=== PATIENT | female | born 1980 ===

== ENCOUNTER 2017-05-02 05:36 | Emergency (ER) | payer OTHER ==
[2017-05-02 05:37] VITALS: BMI 23.7
[2017-05-02 05:45] VITALS: O2SAT 100
[2017-05-02] MEDS ORDERED: diaZEpam 10 mg/2 ml Inj IM ONE (05:56)
--- NOTE | 2017-05-02 06:05 | ED PDOC ---
HPI: Back <Chuyita Dooley F - Last Filed: 05/02/17 07:32> Chief Complaint (Provider): Back Pain History Per: Patient History/Exam Limitations: no limitations Onset/Duration Of Symptoms: Hrs (x 1.5) Current Symptoms Are (Timing): Still Present Quality Of Discomfort: Sharp, Stabbing Pain Scale Rating Of: 10 Previous Symptoms: Back Pain Exacerbating Factor(s): Movement Additional Complaint(s): Denise is a 37 y/o female with a history of chronic back pain, sciatica, and lumbar disc disease, presenting with acute left-sided low back pain radiating down the left buttock and leg. She reports pain is similar to previous exacerbations she's had in the past. Patient did not take any medications prior to arrival. Reports intense pain with any sort of movement, and difficulty walking. Pain is rated as 10/10, sharp, and stabbing. PMD: Unknown <London Campa - Last Filed: 05/04/17 01:24> Time Seen by Provider: 05/02/17 05:45 Chief Complaint (Nursing): Back Pain Past Medical History Vital Signs: Last Vital Signs Temp 98.0 F 05/02/17 05:42 Pulse 68 05/02/17 05:42 Resp 05/02/17 05:42 BP 104/72 05/02/17 05:42 Pulse Ox 100 05/02/17 06:50 <Chuyita Dooley F - Last Filed: 05/02/17 07:32> Reviewed: Historical Data, Nursing Documentation, Vital Signs Vital Signs: Last Vital Signs Temp 98.0 F 05/02/17 05:42 Pulse 68 05/02/17 05:42 Resp 05/02/17 05:42 BP 104/72 05/02/17 05:42 Pulse Ox 100 05/02/17 05:42 - Medical History PMH: Chronic Pain (back) Denies: Depression Other PMH: sciatica, lumbar disc disease - Surgical History Surgical History: No Surg Hx - Family History Family History: States: No Known Family Hx - Social History Current smoker - smoking cessation education provided: No Alcohol: None Drugs: Denies <London Campa - Last Filed: 05/04/17 01:24> - Home Medications Home Medications: Ambulatory Orders Medication Instructions Recorded Cyclobenzaprine [Flexeril] 5 mg PO BID #10 tab 02/18/17 Naproxen 0 tab PO BID PRN 02/18/17 Cyclobenzaprine [Cyclobenzaprine 10 mg PO TID PRN #15 tab 05/02/17 HCl] Naproxen [Naprosyn] 500 mg PO BID PRN #15 tablet 05/02/17 - Allergies Allergies/Adverse Reactions: Allergies Allergy/AdvReac Type Severity Reaction Status Date / Time kiwi Allergy Severe ANAPHYLAXIS Uncoded 09/11/15 12:45 Review of Systems ROS Statement: Except As Marked, All Systems Reviewed And Found Negative Musculoskeletal: Positive for: Back Pain (radiating down left buttock and leg) <London Campa - Last Filed: 05/04/17 01:24> Physical Exam - Reviewed Nursing Documentation Reviewed: Yes Vital Signs Reviewed: Yes - Physical Exam Appears: Positive for: No Acute Distress, Uncomfortable Head Exam: Positive for: ATRAUMATIC, NORMAL INSPECTION, NORMOCEPHALIC Skin: Positive for: Normal Color, Warm, Dry Eye Exam: Positive for: EOMI, Normal appearance, PERRL Neck: Positive for: Normal, Painless ROM Cardiovascular/Chest: Positive for: Regular Rate, Rhythm. Negative for: Murmur Respiratory: Positive for: Normal Breath Sounds. Negative for: Accessory Muscle Use, Respiratory Distress Gastrointestinal/Abdominal: Positive for: Normal Exam, Soft. Negative for: Tenderness Back: Positive for: Normal Inspection. Negative for: L CVA Tenderness, R CVA Tenderness Extremity: Positive for: Other (Leg raise tenderness on left at 15 degrees. Leg raise tenderness on right at 45 degrees) Neurologic/Psych: Positive for: Alert, Oriented (x 3) <London Campa - Last Filed: 05/04/17 01:24> - ECG O2 Sat by Pulse Oximetry: 100 (RA) Pulse Ox Interpretation: Normal <London Campa - Last Filed: 05/04/17 01:24> Medical Decision Making Medical Decision Making: Time: 05:56 Initial Impression: 37-year-old female with low back pain in setting of lumbar disc disease Initial Plan: --Trial of Toradol and Valium --Pending urinalysis and reevaluation Time: 07:00 --Patient is signed out by me to Dr. Chuyita Dooley, pending reevaluation. Scribe Attestation: Documented by Kayla Jenkins, acting as a scribe for London Campa MD Provider Scribe Attestation: All medical record entries made by the Scribe were at my direction and personally dictated by me. I have reviewed the chart and agree that the record accurately reflects my personal performance of the history, physical exam, medical decision making, and the department course for this patient. I have also personally directed, reviewed, and agree with the discharge instructions and disposition. <London Campa - Last Filed: 05/04/17 01:24> Disposition <Chuyita Dooley - Last Filed: 05/02/17 07:32> - Patient ED Disposition Is Patient to be Admitted: Transfer of Care - Disposition Disposition: Transfer of Care Disposition Time: 07:00 Patient Signed Over To: Chuyita Dooley Handoff Comments: Pending reevaluation <London Campa - Last Filed: 05/04/17 01:24> - Clinical Impression Clinical Impression: Chronic back pain - Disposition Referrals: [facility] [Outside] Condition: STABLE Prescriptions: Cyclobenzaprine [Cyclobenzaprine HCl] 10 mg PO TID PRN #15 tab PRN Reason: Pain Naproxen [Naprosyn] 500 mg PO BID PRN #15 tablet PRN Reason: Pain, Moderate (4-7) Instructions: Chronic Back Pain (ED) Forms: [employer] ([place]ese), [facility] ED School/Work Excuse
[2017-05-02 06:25] LABS: RBC URINE 11 /hpf (0-3); URINE BACTERIA RARE (<OCC); URINE BILIRUBIN NEGATIVE (NEGATIVE); URINE BLOOD NEGATIVE (NEGATIVE); URINE COLOR YELLOW (YELLOW); URINE GLUCOSE (UA) NEG (Normal); URINE KETONE NEGATIVE (NEGATIVE); URINE LEUKOCYTE ESTERASE NEG Leu/uL (Negative); URINE PROTEIN 100 mg/dL (NEGATIVE); URINE UROBILINOGEN 0.2-1.0 mg/dL (0.2-1.0); WBC URINE 1 /hpf (0-5)
--- NOTE | 2017-05-02 07:38 | ED PDOC ---
- ECG O2 Sat by Pulse Oximetry: 100 (RA) Medical Decision Making Medical Decision Making: Patient signed over to me by London Campa MD pending remaining ED workup. Scribe Attestation: Documented by Leighton Moe, acting as a scribe for Chuyita Dooley MD. Provider Scribe Attestation: All medical record entries made by the Scribe were at my direction and personally dictated by me. I have reviewed the chart and agree that the record accurately reflects my personal performance of the history, physical exam, medical decision making, and the department course for this patient. I have also personally directed, reviewed, and agree with the discharge instructions and disposition. Disposition - Disposition Forms: [employer] ([place])
[2017-05-02] MEDS ORDERED: Lidocaine 5% Patch TD STA (09:59)
[2017-05-02] MEDS ORDERED: Lidocaine 5% Patch TD ONE (10:05)
[2017-05-02 10:11] VITALS: BP 110/76; PULSE 70; RESP 16; TEMP 97.9
== END 2017-05-02 10:11 | disposition home or self-care (01) ==
LOC: H.ER 05:36
DX: M54.9 Dorsalgia, unspecified (principal)
CPT/HCPCS: 81003; 81025; 96372; 99282; J1885; J3360

== ENCOUNTER 2018-11-13 10:24 | Emergency (ER) | payer SELFPAY ==
[2018-11-13 10:30] VITALS: BMI 26.0
[2018-11-13 10:31] VITALS: RESP 18
--- NOTE | 2018-11-13 11:01 | ED PDOC ---
HPI: Chest Pain Time Seen by Provider: 11/13/18 10:39 Chief Complaint (Nursing): Chest Pain Chief Complaint (Provider): Ches pain History Per: Patient History/Exam Limitations: no limitations Onset/Duration Of Symptoms: Days (x2 weeks), Intermittent Episodes Current Symptoms Are (Timing): Still Present Quality: Tightness Associated Symptoms: denies: Nausea, Dyspnea, Diaphoresis Additional Complaint(s): Denise Porras is a 38 year old female, with no significant past medical history, who presents to the emergency department complaining of an intermittent left sided chest pain ongoing for x2 weeks. Patient states pain has radiated under her left arm. She reports pain has worsened with her cough. She did not take any medications for pain. She denies any fever, chills, shortness of breath, nausea, vomit, diaphoresis, numbness, tingling, weakness or other medical complaints. PMD: Dr. Go Past Medical History Reviewed: Historical Data, Nursing Documentation, Vital Signs Vital Signs: Last Vital Signs Temp 98.0 F 11/13/18 10:30 Pulse 84 11/13/18 10:30 Resp 18 11/13/18 10:30 BP 116/80 11/13/18 10:30 Pulse Ox 99 11/13/18 10:30 - Medical History PMH: No Chronic Diseases, Chronic Pain (back) Denies: Depression - Surgical History Surgical History: No Surg Hx - Family History Family History: States: Unknown Family Hx - Social History Current smoker - smoking cessation education provided: Yes (Current some days smoker) Alcohol: None Drugs: Denies - Immunization History Hx Tetanus Toxoid Vaccination: No - Home Medications Home Medications: Ambulatory Orders Medication Instructions Recorded Cyclobenzaprine [Flexeril] 5 mg PO BID #10 tab 02/18/17 Naproxen 0 tab PO BID PRN 02/18/17 Cyclobenzaprine [Cyclobenzaprine 10 mg PO TID PRN #15 tab 05/02/17 HCl] Naproxen [Naprosyn] 500 mg PO BID PRN #15 tablet 05/02/17 Naproxen [Naprosyn] 500 mg PO BID PRN #15 tablet 11/13/18 - Allergies Allergies/Adverse Reactions: Allergies Allergy/AdvReac Type Severity Reaction Status Date / Time kiwi Allergy Severe ANAPHYLAXIS Uncoded 09/11/15 12:45 Review of Systems ROS Statement: Except As Marked, All Systems Reviewed And Found Negative Constitutional: Negative for: Fever, Chills, Sweats Cardiovascular: Positive for: Chest Pain Respiratory: Positive for: Cough Gastrointestinal: Negative for: Nausea, Vomiting, Diarrhea Neurological: Negative for: Weakness, Numbness (tingling) Physical Exam - Reviewed Nursing Documentation Reviewed: Yes Vital Signs Reviewed: Yes - Physical Exam Appears: Positive for: No Acute Distress Head Exam: Positive for: ATRAUMATIC, NORMAL INSPECTION, NORMOCEPHALIC Skin: Positive for: Normal Color, Warm, Dry Eye Exam: Positive for: Normal appearance, EOMI, PERRL Neck: Positive for: Normal, Painless ROM, Supple Cardiovascular/Chest: Positive for: Regular Rate, Rhythm. Negative for: Chest Non Tender (Left chest wall tenderness & axilla), Murmur Respiratory: Positive for: Normal Breath Sounds (clear to auscultation). Negative for: Respiratory Distress Gastrointestinal/Abdominal: Positive for: Normal Exam, Soft. Negative for: Tenderness Back: Positive for: Normal Inspection. Negative for: L CVA Tenderness, R CVA Tenderness, Vertebral Tenderness Extremity: Positive for: Normal ROM (upper and lower extremities). Negative for: Tenderness, Deformity, Swelling Neurological/Psych: Positive for: Awake, Alert, Normal Tone, Oriented. Negative for: Motor/Sensory Deficits - Laboratory Results Result Diagrams: 11/13/18 11:22 11/13/18 11:22 - ECG O2 Sat by Pulse Oximetry: 99 (RA) Pulse Ox Interpretation: Normal Medical Decision Making Medical Decision Making: Time: 10:39 Initial Impression: Chest wall pain Initial Plan --EKG --CMP --Troponin I --CBC w/ differential --D Dimer --PTT --PT --Chest two views (PA/LAT) [RAD] --Motrin tab 600 mg PO --Reevaluation Accession No. : [id number] Patient Name / ID : FAWN CRYSTAL / [id number] Exam Date : 11/13/2018 11:10:58 ( Approved ) Study Comment : Sex / Age : F / 38Y Creator : Lacie Mccloud MD Dictator : Lacie Mccloud MD Neuro Psych Sales Specialist : Rubber Liner : Lacie Mccloud MD Approver2 : Report Date : 11/13/2018 11:37:04 My Comment : Date of service: 11/13/2018 HISTORY: Left-sided chest pain COMPARISON: No prior. TECHNIQUE: Chest PA and lateral FINDINGS: LINES AND TUBES: None. LUNG AND PLEURA: The lungs are well inflated and clear. No pleural effusion or pneumothorax. HEART AND MEDIASTINUM: The heart is not enlarged. No aortic atherosclerotic calcifications present. The hilar and mediastinal contours are within normal limits. SKELETAL STRUCTURES: The bony structures are within normal limits for the patient's age. VISUALIZED UPPER ABDOMEN: Normal. OTHER FINDINGS: None. IMPRESSION: No active pulmonary disease. No acute findings. Scribe Attestation: Documented by Memo Young, acting as a scribe Sorin Dooley MD Provider Scribe Attestation: All medical record entries made by the Scribe were at my direction and personally dictated by me. I have reviewed the chart and agree that the record accurately reflects my personal performance of the history, physical exam, medical decision making, and the department course for this patient. I have also personally directed, reviewed, and agree with the discharge instructions and disposition. Disposition - Clinical Impression Clinical Impression: Chest pain - Disposition Referrals: [facility] [Outside] Disposition: Routine/Home Disposition Time: 13:28 Condition: STABLE Prescriptions: Naproxen [Naprosyn] 500 mg PO BID PRN #15 tablet PRN Reason: Pain, Moderate (4-7) Instructions: Chest Pain Forms: [employer] ([place]), [facility] ED School/Work Excuse
--- NOTE | 2018-11-13 11:41 | RAD ---
Date of service: 11/13/2018 HISTORY: Left-sided chest pain COMPARISON: No prior. TECHNIQUE: Chest PA and lateral FINDINGS: LINES AND TUBES: None. LUNG AND PLEURA: The lungs are well inflated and clear. No pleural effusion or pneumothorax. HEART AND MEDIASTINUM: The heart is not enlarged. No aortic atherosclerotic calcifications present. The hilar and mediastinal contours are within normal limits. SKELETAL STRUCTURES: The bony structures are within normal limits for the patient's age. VISUALIZED UPPER ABDOMEN: Normal. OTHER FINDINGS: None. IMPRESSION: No active pulmonary disease. No acute findings.
[2018-11-13 11:44] LABS: BASO # 0.1 K/uL (0.0-0.2); BASO % 1.1 % (0.0-2.0); EOS # 0.1 K/uL (0.0-0.7); EOS % 2.1 % (0.0-4.0); HEMOGLOBIN 13.2 g/dL (12.0-16.0); LYMPH % 33.1 % (20.0-40.0); MEAN CELL VOLUME 97.6 fl (81.0-99.0); MEAN CORPUSCULAR HEMOGLOBIN 32.2 pg (27.0-31.0); MEAN PLATELET VOLUME 7.2 fl (7.2-11.7); MONO # 0.9 K/uL (0.0-0.8); MONO % 14.5 % (0.0-10.0); NEUT # 2.9 K/uL (1.8-7.0); NEUT % 49.2 % (50.0-75.0); NRBC % 0.2 % (0.0-0.0); RBC 4.09 Mil/uL (3.80-5.20); RED CELL DISTRIBUTION WIDTH 14.4 % (11.5-14.5)
[2018-11-13 11:45] LABS: PROTHROMBIN TIME 11.7 Seconds (9.8-13.1)
[2018-11-13 11:46] LABS: ALB/GLOB RATIO 1.4 (1.0-2.1); ALBUMIN 4.2 g/dL (3.5-5.0); ALT/SGPT 31 U/L (9-52); AST/SGOT 27 U/L (14-36); BLOOD UREA NITROGEN 15 mg/dl (7-17); CALCIUM 9.7 mg/dL (8.4-10.2); GFR NON-AFRICAN AMERICAN > 60
[2018-11-13 11:53] LABS: D DIMER < 200 ng/mlDDU (0-230)
[2018-11-13 13:45] VITALS: BP 119/70; PULSE 76; TEMP 98
--- NOTE | 2018-11-13 19:05 | CARD ---
APPROVED REPORT Date of service: 11/13/2018 EKG Measurement Heart [id number] <Conclusion> Normal sinus rhythm with sinus arrhythmia Normal ECG
[2018-11-16 14:19] VITALS: O2SAT 99
== END 2018-11-13 13:44 | disposition home or self-care (01) ==
LOC: H.ER 10:24
DX: R07.89 Other chest pain (principal)